=== PATIENT | male | born 1960 | race Caucasian/White ===

== ENCOUNTER 2024-11-26 06:18 | Inpatient (IN) | payer MEDICARE ==
[2024-11-26 06:58] LABS: BASOPHILS ABSOLUTE AUTO 0.06 K/uL (0.00-0.10); BASOPHILS PERCENT AUTO 0.5 % (0.1-1.3); EOSINOPHILS ABSOLUTE AUTO 0.25 K/uL (0.00-0.40); EOSINOPHILS PERCENT AUTO 1.9 % (0.0-5.4); HEMATOCRIT 42.9 % (38.4-49.7); HEMOGLOBIN 14.6 g/dL (12.9-16.9); IMMATURE GRAN ABSOLUTE AUTO 0.16 K/uL (0.00-0.23); IMMATURE GRAN PERCENT AUTO 1.2 % (0.0-0.7); LYMPHOCYTES ABSOLUTE AUTO 1.87 K/uL (0.8-3.3); LYMPHOCYTES PERCENT AUTO 14.4 % (11.4-47.7); MEAN CORPUSCULAR VOLUME 91.1 fL (81.4-99.0); MONOCYTES ABSOLUTE AUTO 0.77 K/uL (0.20-0.90); MONOCYTES PERCENT AUTO 5.9 % (3.3-12.6); NEUTROPHILS PERCENT AUTO 76.1 % (40.0-78.1); PLATELET COUNT,PLT 300 K/uL (130-375); RED BLOOD CELL COUNT 4.71 M/uL (4.14-5.76)
[2024-11-26] MEDS: Sodium Chloride 0.9% 1,000 ML IV ONE (07:03)
[2024-11-26] MEDS ORDERED: Racepinephrine 2.25% 0.5 ML Neb Soln NEB ONE (07:05)
[2024-11-26] MEDS ORDERED: Sodium Chloride 0.9% Inhalation Soln 3 ML Neb INH PRN (07:05)
[2024-11-26 07:14] LABS: PROTHROMBIN TIME 10.5 sec (9.2-10.6)
[2024-11-26 07:18] LABS: A/G RATIO 0.9 (1.2-2.2); ALANINE AMINOTRANSFERASE,ALT 23 U/L (12-78); ALBUMIN 3.7 g/dL (3.4-5.0); ALKALINE PHOSPHATASE 72 U/L (46-116); ASPARTATE AMNIOTRANSFERASE,AST 21 U/L (15-37); BILIRUBIN TOTAL 0.8 mg/dL (0.2-1.0); BLOOD UREA NITROGEN,BUN 17 mg/dL (7-18); CARBON DIOXIDE,CO2 27 mmol/L (21-32); CHLORIDE,CL 101 mmol/L (100-108); CREATININE 1.3 mg/dL (0.8-1.3); EST CRCL DRUG DOSING (CG) 56.65 mL/min; ESTIMATED GFR 61 mL/min (>60); GLUCOSE RANDOM 245 mg/dL (74-106); POTASSIUM,K 4.7 mmol/L (3.6-5.2); SODIUM,NA 138 mmol/L (140-148)
[2024-11-26 07:34] LABS: ANION GAP 14.7 mmol/L (5.0-14.0)
[2024-11-26] MEDS: Sodium Chloride 0.9% 10 ML Syringe FLUSH ONE (07:52)
[2024-11-26] MEDS: Sodium Chloride 0.9% 80 ML IV SCH (07:52)
[2024-11-26] MEDS: Iopamidol 755 Mg/ML 100 ML Bottle IV SCH (07:52)
[2024-11-26] MEDS ORDERED: Ondansetron 4 MG/2 ML SDV IV PRN (11:21)
[2024-11-26] MEDS ORDERED: Ondansetron 4 MG Tab.DIS PO PRN (11:21)
[2024-11-26] MEDS ORDERED: Acetaminophen 325 MG Tab PO PRN (11:21)
[2024-11-26] MEDS: Insulin Lispro 100 Unit/ML 3 ML KwikPen SUBCUT SCH (12:18)
[2024-11-26] MEDS: Metoprolol Succinate 50 MG Tab.ER PO SCH (12:19)
[2024-11-26] MEDS: Bisacodyl 5 MG Tab PO ONE (15:21)
[2024-11-26] MEDS: Polyethylene Glycol 3350 Powder 238 GM Bot PO ONE (15:22)
[2024-11-26] MEDS: Insulin Glargine,Human Rec. Analog 100 Units/ML 3 ML Pen SUBCUT SCH (21:22)
[2024-11-27 05:49] LABS: HEMATOCRIT 37.5 % (38.4-49.7); HEMOGLOBIN 12.8 g/dL (12.9-16.9); MEAN CORPUSCULAR HEMOGLOBIN 31.1 pg (31.6-35.5); MEAN CORPUSCULAR HGB CONC 34.1 g/dL (31.6-35.5); MEAN CORPUSCULAR VOLUME 91.2 fL (81.4-99.0); RED BLOOD CELL COUNT 4.11 M/uL (4.14-5.76); WHITE BLOOD CELL COUNT,WBC 8.6 K/uL (3.2-11.0)
[2024-11-27 06:04] LABS: ANION GAP 7.1 mmol/L (5.0-14.0); CALCIUM 8.8 mg/dL (8.5-10.1); CREATININE 1.1 mg/dL (0.8-1.3); EST CRCL DRUG DOSING (CG) 66.95 mL/min
[2024-11-27] MEDS ORDERED: Propofol 200 MG/20 ML SDV ONE ×3 (07:01→10:53)
[2024-11-27] MEDS ORDERED: Midazolam 1 MG/ML 2 ML SDV ONE (07:01)
[2024-11-27] MEDS ORDERED: fentaNYL 50 MCG/ML SDV ONE (07:01)
[2024-11-27] MEDS: Lisinopril 20 MG Tab PO SCH (08:00)
[2024-11-27] MEDS: Sodium Chloride 0.9% 80 ML IV SCH (12:39)
[2024-11-27] MEDS: Iopamidol 612 MG/ML 100 ML Bottle IV ONE (12:39)
== END 2024-11-27 14:40 | disposition home or self-care (01) | DRG 379 ==
LOC: JP.ED 06:18 → JP.MS 10:28
PROVIDERS: ADMIT Internal Medicine; ATTEND Internal Medicine
PROC: 0DBM8ZZ Excision of Descending Colon, Via Natural or Artificial Opening Endoscopic (ICD-10-PCS; 2024-11-27)
PROC: 0DJ08ZZ Inspection of Upper Intestinal Tract, Via Natural or Artificial Opening Endoscopic (ICD-10-PCS; 2024-11-27)
PROC: 0DBK8ZZ Excision of Ascending Colon, Via Natural or Artificial Opening Endoscopic (ICD-10-PCS; principal; 2024-11-27 10:30)
PROC: 0DBN8ZZ Excision of Sigmoid Colon, Via Natural or Artificial Opening Endoscopic (ICD-10-PCS; 2024-11-27 10:30)
DX: K57.31 Diverticulosis of large intestine without perforation or abscess with bleeding (principal); R91.1 Solitary pulmonary nodule; K92.1 Melena; I48.91 Unspecified atrial fibrillation; Z91.048 Other nonmedicinal substance allergy status; E11.9 Type 2 diabetes mellitus without complications; I10 Essential (primary) hypertension; Z79.82 Long term (current) use of aspirin; E66.9 Obesity, unspecified; H54.7 Unspecified visual loss; Z88.8 Allergy status to other drugs, medicaments and biological substances; Z79.4 Long term (current) use of insulin; Z79.899 Other long term (current) drug therapy; Z90.49 Acquired absence of other specified parts of digestive tract; Z68.39 Body mass index [BMI] 39.0-39.9, adult
CPT/HCPCS: 36415; 74177; 80053; 83690; 85025; 85610; 93005; 93010 ×3; 96360; 99285 ×2; J7030; Q9967; 00813-QZ; 71260; 80048; 85018; 85027; 88305; 99222; 99238; A9270-GY; J1815; J1815-GY; J2250; J2704; J3010